=== PATIENT | male | born 2005 | race Caucasian/White ===

== ENCOUNTER 2025-06-30 17:22 | Emergency (ER) | payer OTHER ==
[~2025-06-30] VITALS: Ht 185.4 cm; Wt 83.9 kg
[2025-06-30 17:22] VITALS: BP 124/76; PULSE 75; RESP 16; TEMP 98.1; O2SAT 100
[2025-06-30 18:13] LABS: BASOPHIL # 0.1 10^3/uL (0.0-0.1); BASOPHIL % 0.8 % (0.2-1.2); EOSINOPHIL # 0.6 10^3/uL (0.0-0.2); EOSINOPHIL % 7.7 % (0.0-5.0); HEMATOCRIT(ML) 44.4 % (37.0-53.0); IG % 0.10 % (0.00-0.50); LYMPHOCYTES # 1.95 10^3/uL1 (1.0-4.8); LYMPHOCYTES % 24.7 % (24.0-44.0); MEAN CORP HGB 25.3 pg (26-34); MEAN CORP HGB CONCENTRATION 31.3 g/dL (33-36.5); MEAN CORP VOLUME 80.9 fL (78-100); MONOCYTES # 0.8 10^3/uL (0.3-0.8); MONOCYTES % 9.6 % (5.0-12.0); NEUTROPHIL # 4.5 10^3/uL (1.8-7.7); NEUTROPHILS % 57.1 % (41.0-85.0); RED BLOOD CELL 5.49 10^6/uL (4.50-5.90); RED CELL DISTRIBUTION WIDTH 13.2 % (11.5-14.5); WHITE BLOOD CELL 7.9 10^3/uL (4.5-11.0)
[2025-06-30] MEDS ORDERED: TORADOL ONE (18:18)
[2025-06-30 18:22] LABS: APPEARANCE,URINE CLEAR; LEUKOCYTE ESTERASE ,URINE NEGATIVE (NEGATIVE); NITRATE,URINE NEGATIVE (NEGATIVE); UA COLOR YELLOW
[2025-06-30] MEDS: TORADOL IV STA (18:24)
[2025-06-30 18:29] LABS: ALANINE AMINOTRANSFERASE(ML) 32.0 U/L (12-78); ALBUMIN(ML) 3.9 g/dL (3.4-5.0); CREATININE SERUM 0.9 mg/dL (0.59-1.40); EST GFR, NON-AA 106.5 (>/=60)
[2025-06-30 18:30] VITALS: BP 114/70; PULSE 71; RESP 16; TEMP 98.1; O2SAT 99
[2025-06-30 19:20] VITALS: BP 125/75; PULSE 77; RESP 16; TEMP 98.1; O2SAT 99
== END 2025-06-30 19:20 | disposition home or self-care (01) ==
LOC: ER 17:22
DX: R10.11 Right upper quadrant pain (principal); Z98.890 Other specified postprocedural states
CPT/HCPCS: 99285; 74177; 96374; 80053; 85025; 36415; 81001; 83690; J1885; Q9967; Q9965